=== PATIENT | female | born 1970 | race Two or more races ===

== ENCOUNTER 2019-03-21 10:34 | Emergency (ER) | payer SELFPAY ==
[~2019-03-21] VITALS: Ht 180.3 cm; Wt 83.5 kg
[2019-03-21] MEDS ORDERED: INSU100C SQ-INSULIN (11:21)
[2019-03-21] MEDS ORDERED: METF500T17 PO (11:21)
[2019-03-21] MEDS ORDERED: INSU100V13 SC (11:21)
--- NOTE | 2019-03-21 11:21 | NUR ---
Patient to bed with spouse; gown on; SpO2 sensor and blood pressure cuff in place. Patient reports no respiratory distress or chest pain. Skin pink warm and dry. VSS; no complaints of pain at this time.
[2019-03-21 11:26] LABS: BASOPHILS # (AUTO) 0.02 x10^3/uL (0-0.1); BASOPHILS % (AUTO) 0 % (0-1); EOSINOPHILS # (AUTO) 0.18 x10^3/uL (0-0.4); EOSINOPHILS % (AUTO) 3 % (1-7); LYMPHOCYTES # (AUTO) 1.15 x10^3/uL (1-3.4); LYMPHOCYTES % (AUTO) 16 % (22-44); MD NO; MEAN CORPUSCULAR HEMOGLOBIN 31.7 pg (27.0-34.8); MEAN CORPUSCULAR HGB CONC 33.8 g/dL (32.4-35.8); MEAN CORPUSCULAR VOLUME 93.7 fL (80-100); MEAN PLATELET VOLUME 9.2 fL (7.4-10.4); MONOCYTES # (AUTO) 0.35 x10^3/uL (0.2-0.8); MONOCYTES % (AUTO) 5 % (2-9); NEUTROPHILS % (AUTO) 76 % (42-75); PLATELET COUNT 306 x10^3/uL (130-400); RED BLOOD COUNT 4.43 x10^6/uL (3.82-5.3); RED CELL DISTRIBUTION WIDTH 12.4 % (9.6-15.2)
[2019-03-21] MEDS ORDERED: ONDANSETRON 2MG/ML, 2ML IVPush ONE (11:30)
[2019-03-21] MEDS ORDERED: FAMOTIDINE 20 MG/2 ML IVP ONE (11:30)
[2019-03-21] MEDS ORDERED: SODIUM CHLORIDE 0.9% 1,000ML IVBOLUS ONE (11:30)
[2019-03-21 11:58] LABS: ALBUMIN 3.7 g/dL (3.4-5.0); ANION GAP 6 mmol/L (5-15); CALCIUM 9.1 mg/dL (8.5-10.1); CHLORIDE 107 mmol/L (98-107)
[2019-03-21 12:16] LABS: ALANINE AMINOTRANSFERASE 29 U/L (12-78); ALKALINE PHOSPHATASE 76 U/L (45-117); BILIRUBIN,TOTAL 0.4 mg/dL (0.2-1.0); CREATININE 0.78 mg/dL (0.55-1.02); TOTAL PROTEIN 7.9 g/dL (6.4-8.2)
--- NOTE | 2019-03-21 12:22 | NUR ---
Patient resting in bed; reports no distress; orders received. Patient agreeable. VSS
[2019-03-21] MEDS ORDERED: ONDANSETRON 2MG/ML, 2ML ONE (12:25)
[2019-03-21] MEDS ORDERED: FAMOTIDINE 20 MG/2 ML ONE (12:25)
[2019-03-21] MEDS ORDERED: SODIUM CHLORIDE FLUSH 10ML SYR IVF ONE (12:30)
--- NOTE | 2019-03-21 13:19 | NUR ---
Patient resting in bed; reports some improvement from antinausea medications; VSS; reports no distress at this time.
[2019-03-21] MEDS ORDERED: PROMETHAZINE 25MG TABLET ONE (13:51)
--- NOTE | 2019-03-21 13:58 | NUR ---
updated provider that patient still feels nauseas but improving; ua complete and sent by tech; vss; po challenge provided; antinausea med provided; will recheck to see how well tolerates
[2019-03-21] MEDS ORDERED: PROMETHAZINE 25MG TABLET PO PRN (14:00)
[2019-03-21 14:09] LABS: HCG UR SG 1.011 (1.003-1.030); MICROSCOPIC AUTO
[2019-03-21 14:13] LABS: CULTURE INDICATED? YES
[2019-03-21 15:05] VITALS: BP 124/56
--- NOTE | 2019-03-21 15:05 | NUR ---
Patient unsure whether she feels better; falls asleep and resting comfortably when not aroused by RN, able to keep 8oz water down; VSS.
== END 2019-03-21 16:01 | disposition home or self-care (01) ==
LOC: ED 12:49
DX: E86.0 Dehydration (principal); R42 Dizziness and giddiness; E11.9 Type 2 diabetes mellitus without complications
CPT/HCPCS: 80053; 81001; 81025; 82962; 83690; 85025; 87077; 87086; 96361; 96374; 96375; 99283; J2405; J3490; J7030; Q0169; 87186